=== PATIENT | male | born 1955 ===

== ENCOUNTER 2023-02-16 08:43 | Outpatient (CLI) | payer MEDICARE, OTHER | END 2023-02-16 08:44 | disposition home or self-care (01) | LOC: CSHCT 08:43 | PROVIDERS: ATTEND Internal Medicine Hematology & Oncology | DX: C43.59 Malignant melanoma of other part of trunk (principal); R91.8 Other nonspecific abnormal finding of lung field | CPT/HCPCS: 71260; 74177; 82565 ==